=== PATIENT | female | born 2000 | race Caucasian/White ===

== ENCOUNTER 2021-04-03 12:50 | Emergency (ER) | payer OTHER, BC ==
[2021-04-03] MEDS ORDERED: Cyclobenzaprine 10 MG TAB ONE (15:11)
[2021-04-03] MEDS ORDERED: Ibuprofen 200 MG TAB ONE (15:11)
[2021-04-03] MEDS ORDERED: Bacitracin 1 PK ONE (15:26)
== END 2021-04-03 15:44 | disposition home or self-care (01) ==
LOC: CSHERS 12:50
DX: S00.83XA Contusion of other part of head, initial encounter (principal); S80.211A Abrasion, right knee, initial encounter; S40.211A Abrasion of right shoulder, initial encounter; S60.811A Abrasion of right wrist, initial encounter; V19.9XXA Pedal cyclist (driver) (passenger) injured in unspecified traffic accident, initial encounter
CPT/HCPCS: 99283